=== PATIENT | male | born 1930 | race Two or more races ===

== ENCOUNTER 2017-04-02 03:31 | Emergency (ER) | payer OTHER ==
[~2017-04-02] VITALS: Ht 167.6 cm; Wt 68.0 kg
[2017-04-02 04:00] VITALS: BP 185/95
[2017-04-02] MEDS ORDERED: KETOROLAC TROMETH 60MG/2ML VIAL IM ONE (05:15)
== END 2017-04-02 06:07 | disposition home or self-care (01) ==
LOC: ER 03:31
DX: S22.42XA Multiple fractures of ribs, left side, initial encounter for closed fracture (principal); R51 Headache; E78.5 Hyperlipidemia, unspecified; W10.9XXA Fall (on) (from) unspecified stairs and steps, initial encounter; Y93.89 Activity, other specified; Y92.89 Other specified places as the place of occurrence of the external cause; Y99.8 Other external cause status
CPT/HCPCS: 70450; 71111; 73030; 96372; 99284; J1885

== ENCOUNTER 2017-04-17 07:59 | Inpatient (IN) | payer OTHER ==
[~2017-04-17] VITALS: Ht 162.6 cm; Wt 67.3 kg
[2017-04-17] MEDS ORDERED: SODIUM CHLORIDE 0.9% 1,000 ML IV ONE (08:14)
[2017-04-17 08:37] LABS: Basophils # (auto) 0.1 uL; Basophils % (auto) 0.8 % (0.0-2.0); CONDITION Y; Eosinophils # (auto) 0.3 uL; Eosinophils % (auto) 4.1 % (0.0-7.0); Hematocrit 45.7 % (41.0-53.0); Hemoglobin 15.2 g/dL (13.5-17.5); Lymphocytes # (auto) 1.5 uL; Mean Corpuscular Hemoglobin 29.8 pg (28.0-32.0); Mean Corpuscular Hgb Conc. 33.3 g/dL (32.0-36.0); Mean Corpuscular Volume 89.4 fL (80.0-100.0); Monocytes # (auto) 0.9 uL; Neutrophils # (auto) 4.6 uL; Neutrophils % (auto) 63.1 % (37.0-80.0); Platelet Count (auto) 310 10^3/uL (140-450); Red Cell Distribution Width 13.3 % (11.6-16.0); White Blood Cell 7.4 10^3/uL (4.4-10.8)
[2017-04-17 08:50] LABS: INR 1.02 (0.9-1.15); Partial Thromboplastin Time 29.8 sec (22.64-33.71); Prothrombin Time 11.1 sec (9.37-12.3)
[2017-04-17 08:57] LABS: Albumin 3.8 g/dL (3.4-5.0); Anion Gap 11 (5-15); Aspartate Aminotransferase 26 U/L (15-37); BUN/Creatinine Ratio 29.2; Blood Urea Nitrogen 26 mg/dL (7-18); Calcium 8.8 mg/dL (8.5-10.1); Carbon Dioxide 24 mmol/L (21-32); Chloride 106 mmol/L (98-107); GFR African American 104 mL/min; GFR Non-African American 86 mL/min; Glucose 124 mg/dL (74-106); Magnesium 2.2 mg/dL (1.6-2.6); Potassium 4.4 mmol/L (3.5-5.1); Sodium 141 mmol/L (136-145)
[2017-04-17 09:02] LABS: Alkaline Phosphatase 104 U/L (45-117); Bilirubin, Total 0.6 mg/dL (0.2-1.0)
[2017-04-17 09:41] LABS: B-Type Natriuretic Peptide 102.44 pg/mL (0-100)
[2017-04-17 09:48] LABS: Temperature: 24.6 C (20.0-25.0)
[2017-04-17] MEDS ORDERED: LIDOCAINE 2%HCL (LOCAL ANESTH.) INJ 20ML MDV ONE ×2 (10:42→12:02)
[2017-04-17 11:05] LABS: Urine Bilirubin Negative (Negative); Urine Blood Negative /uL (Negative); Urine Color Yellow (Yellow); Urine Glucose Normal (Normal); Urine Ketone Negative (Negative); Urine Mucus FEW (None Seen); Urine Nitrite Negative (Negative); Urine RBC <1 /hpf (0 - 3); Urine Squamous Epithelial Cell FEW /hpf (<5); Urine Urobilinogen Normal (Negative); Urine pH 6.5 (5.0-8.0)
[2017-04-17] MEDS ORDERED: DOCUSATE SOD 100 MG CAP PO PRN (11:15)
[2017-04-17] MEDS ORDERED: HYDROcodone-ACET 5/325MG TAB PO PRN ×2 (11:15→13:45)
[2017-04-17] MEDS ORDERED: ACETAMINOPHEN 325 MG TAB PO PRN (11:15)
[2017-04-17] MEDS ORDERED: MORPHINE SULF INJ 2 MG/ML SYRINGE 1ML IV PRN ×2 (11:15)
[2017-04-17] MEDS ORDERED: TEMAZEPAM 15 MG CAP PO PRN (11:15)
[2017-04-17] MEDS ORDERED: NITROGLYCERIN 0.4 MG SL TAB SL PRN (11:15)
[2017-04-17] MEDS ORDERED: ONDANSETRON HCL 4 MG/2 ML VIAL IV PRN (11:15)
[2017-04-17] MEDS ORDERED: VANCOMYCIN HCL 1000 MG VL ONE ×2 (11:19→12:42)
[2017-04-17] MEDS ORDERED: VANCOMYCIN 1GM/250ML D5W 250 ML IV ONE (11:19)
[2017-04-17] MEDS ORDERED: fentaNYL CITRATE 100 MCG/2 ML VL ONE (11:38)
[2017-04-17] MEDS ORDERED: MIDAZOLAM HCL 1MG/1ML-2 ML VIAL ONE (11:38)
[2017-04-17] MEDS ORDERED: IOHEXOL 350 MG/ML 100ML IJ ONE (11:38)
[2017-04-17] MEDS ORDERED: LABETALOL HCL 5 MG/ML 4ML SYRINGE IV ONE (13:04)
[2017-04-17] MEDS: SODIUM CHLOR 0.9% PF (SALINE LOCK) 10ML VIAL IV SCH ×2 (15:00→21:52)
[2017-04-17] MEDS: ceFAZolin 1GM/50ML D5W 50 ML IV SCH ×2 (15:13→21:52)
[2017-04-17 15:19] VITALS: BP 130/65
[2017-04-17 16:00] VITALS: BP 98/74
[2017-04-17 20:00] VITALS: BP 115/55
[2017-04-17] MEDS: ASCORBIC ACID 500 MG TAB PO SCH (21:51)
[2017-04-17] MEDS: FAMOTIDINE 20 MG TAB PO SCH (21:52)
[2017-04-18] VITALS: BP 133/82
[2017-04-18 04:00] VITALS: BP 127/71
[2017-04-18 05:17] LABS: Basophils # (auto) 0 uL; Basophils % (auto) 0.4 % (0.0-2.0); CONDITION Y; Eosinophils # (auto) 0.2 uL; Eosinophils % (auto) 3.4 % (0.0-7.0); Hematocrit 43.2 % (41.0-53.0); Hemoglobin 14.4 g/dL (13.5-17.5); Lymphocytes # (auto) 1.3 uL; Mean Corpuscular Hemoglobin 29.8 pg (28.0-32.0); Mean Corpuscular Hgb Conc. 33.3 g/dL (32.0-36.0); Mean Corpuscular Volume 89.6 fL (80.0-100.0); Mean Platelet Volume 9.2 fL (7.4-10.4); Monocytes # (auto) 0.9 uL; Monocytes % (auto) 11.6 % (0.0-12.0); Neutrophils % (auto) 67.6 % (37.0-80.0); Platelet Count (auto) 273 10^3/uL (140-450); Red Cell Distribution Width 13.6 % (11.6-16.0); White Blood Cell 7.4 10^3/uL (4.4-10.8)
[2017-04-18] MEDS: SODIUM CHLOR 0.9% PF (SALINE LOCK) 10ML VIAL IV SCH ×2 (06:13→13:25)
[2017-04-18] MEDS: ceFAZolin 1GM/50ML D5W 50 ML IV SCH ×2 (06:13→13:25)
[2017-04-18 06:19] LABS: Albumin 3.7 g/dL (3.4-5.0); BUN/Creatinine Ratio 24.7; Bilirubin, Total 0.9 mg/dL (0.2-1.0); Calcium 8.7 mg/dL (8.5-10.1); Potassium 3.8 mmol/L (3.5-5.1); Total Protein 6.7 g/dL (6.4-8.2)
[2017-04-18 07:30] VITALS: BP 144/82
[2017-04-18] MEDS: ASCORBIC ACID 500 MG TAB PO SCH (09:41)
[2017-04-18] MEDS: FAMOTIDINE 20 MG TAB PO SCH (09:41)
[2017-04-18] MEDS ORDERED: MULTIPLE VITAMIN TAB PO SCH (10:00)
[2017-04-18] MEDS ORDERED: ZINC SULFATE 220 MG CAP PO SCH (10:00)
[2017-04-18 12:00] VITALS: BP 147/79
[2017-04-18 16:10] VITALS: BP 123/73
[2017-04-18 16:56] VITALS: BP 123/73
== END 2017-04-18 18:49 | disposition home or self-care (01) | DRG 243 ==
LOC: ER 07:59 → TELE 08:00 → ER 10:54 → TELE 10:54 → DOU IN ICU 16:17
PROVIDERS: ADMIT Internal Medicine; ATTEND Internal Medicine Pulmonary Disease
PROC: 0JH606Z Insertion of Pacemaker, Dual Chamber into Chest Subcutaneous Tissue and Fascia, Open Approach (ICD-10-PCS; principal; 2017-04-17)
PROC: 02H63JZ Insertion of Pacemaker Lead into Right Atrium, Percutaneous Approach (ICD-10-PCS; 2017-04-17)
PROC: 02HK3JZ Insertion of Pacemaker Lead into Right Ventricle, Percutaneous Approach (ICD-10-PCS; 2017-04-17)
PROC: B5171ZA Fluoroscopy of Left Subclavian Vein using Low Osmolar Contrast, Guidance (ICD-10-PCS; 2017-04-17)
DX: I44.2 Atrioventricular block, complete (principal); S22.42XA Multiple fractures of ribs, left side, initial encounter for closed fracture; I12.9 Hypertensive chronic kidney disease with stage 1 through stage 4 chronic kidney disease, or unspecified chronic kidney disease; N18.2 Chronic kidney disease, stage 2 (mild); I70.8 Atherosclerosis of other arteries; W10.8XXA Fall (on) (from) other stairs and steps, initial encounter; Y93.89 Activity, other specified; Y92.89 Other specified places as the place of occurrence of the external cause; Z90.49 Acquired absence of other specified parts of digestive tract; Y99.8 Other external cause status
CPT/HCPCS: 33208; 36415; 71010; 80053; 81001; 83735; 83880; 84484; 85025; 85610; 85730; 87081; 93005; 93306; 96360; 99152; 99153; 99291; C1785; J0690; J2250; J3490